=== PATIENT | male | born 1960 | race African-American/Black ===

== ENCOUNTER 2017-07-22 15:05 | Emergency (ER) | payer OTHER ==
--- NOTE | 2017-07-22 15:17 | PDOC ---
Rapid Medical Evaluation Time Seen by Provider: 07/22/17 15:15 Medical Evaluation: Allergies Allergy/AdvReac Type Severity Reaction Status Date / Time No Known Allergies Allergy Verified 07/22/17 15:15 I have performed a brief in-person evaluation of this patient. The patient presents with a chief complaint of: infection to left big toe x 3 days. patient is a diabetic Pertinent physical exam findings: medial border of left big toe is erythematous and slightly edematous. no streaking I have ordered the following: none The patient will proceed to the ED for further evaluation. Discharge Disposition - Diagnosis Toe infection - Referrals - Patient Instructions - Post Discharge Activity
[2017-07-22 15:19] VITALS: BP 124/81; PULSE 92; TEMP 98.5; BMI 46.3
--- NOTE | 2017-07-22 16:21 | PDOC ---
*Physical Exam - Vital Signs Last Vital Signs Temp Pulse Resp BP Pulse Ox 98.5 F 92 H 17 124/81 99 07/22/17 15:16 07/22/17 15:16 07/22/17 15:16 07/22/17 15:16 07/22/17 15:16 - Physical Exam Comments: Of great toe 0 thermic and swollen about the medial nail border with associated tenderness no gross sensorimotor deficits. The great toe is ingrown 07/22/17 16:15 Medical Decision Making - Medical Decision Making A digital block was performed with 1% lidocaine without epinephrine aseptically. This was tolerated well. After this was done appropriate anesthesia was obtained. Aseptically, using blunt forceps the nail was lifted off the medial nail fold medially and cut down to the matrix. The ingrown portion was removed the area was flushed with sterile saline and washed with Betadine and sterile Xeroform dressing was placed. This was tolerated well DSD was placed over this area. Instructions were given to remove the gauze in 48 hours levodopa tear. At that time the patient should have followed up with his upstairs maid. 07/22/17 16:16 *DC/Admit/Observation/Transfer Diagnosis at time of Disposition: Toe infection, Ingrowing nail with infection - Discharge Dispostion Disposition: HOME Condition at time of disposition: Stable Decision to Admit order: No - Referrals - Patient Instructions Printed Discharge Instructions: DI for Ingrown Toenail Additional Instructions: I will see her upstairs maid Dr. Rose in 1-2 days return to the emergency room if symptoms go unresolved or worsen prior to follow up. Take all the antibiotics as prescribed. Take Tylenol for pain. - Post Discharge Activity
== END 2017-07-22 16:26 | disposition home or self-care (01) ==
LOC: JERFT 15:05 → JER 15:05 → JERFT 16:26
PROC: 0HBRXZZ Excision of Toe Nail, External Approach (ICD-10-PCS; principal; 2017-07-22)
PROC: 0HBRXZZ Excision of Toe Nail, External Approach (ICD-10-PCS; 2017-07-22)
DX: L60.0 Ingrowing nail (principal)
CPT/HCPCS: 11750; 99281-25

== ENCOUNTER 2018-04-10 16:59 | Emergency (ER) | payer OTHER ==
[2018-04-10 17:06] VITALS: BP 174/84; PULSE 91; TEMP 98.4; BMI 39.5
--- NOTE | 2018-04-10 18:08 | PDOC ---
History of Present Illness - General Chief Complaint: Rash Stated Complaint: ALLERGY REACTION MEDICATION Time Seen by Provider: 04/10/18 18:02 - History of Present Illness Initial Comments: 04/10/18 18:06 57-year-old male presents for evaluation of penis discoloration 7 days he denies any unprotected sex penile drainage systemic symptoms or discharge Past History - Past Medical History Allergies/Adverse Reactions: Allergies Allergy/AdvReac Type Severity Reaction Status Date / Time No Known Allergies Allergy Verified 04/10/18 17:04 Home Medications: Ambulatory Orders metFORMIN HCL [Glucophage] 500 mg PO BID 01/24/12 Enalapril Maleate 5 mg PO ASDIR 07/22/17 Glipizide [Glucotrol] 5 mg PO ASDIR 07/22/17 COPD: No DVT: No Diabetes: Yes - Immunization History Immunization Up to Date: Yes - Suicide/Smoking/Psychosocial Hx Smoking Status: Yes Smoking History: Unknown if ever smoked Years of Tobacco Use: 15 Have you smoked in the past 12 months: No Number of Cigarettes Smoked Daily: 20 Cigars Per Day: 0 Hx Alcohol Use: No Drug/Substance Use Hx: No Substance Use Type: None Review of Systems - Review of Systems Integumentary: Yes: Change in Color *Physical Exam - Vital Signs Last Vital Signs Temp Pulse Resp BP Pulse Ox 98.4 F 91 H 18 174/84 H 04/10/18 17:04 04/10/18 17:04 04/10/18 17:04 04/10/18 17:04 - Physical Exam Comments: 04/10/18 18:06 External genitalia normal. There is whitening at the dorsal and ventral surface of the penile head and shaft Moderate Sedation - Procedure Monitoring Vital Signs: Procedure Monitoring Vital Signs Temperature 98.4 F 04/10/18 17:04 Pulse Rate 91 H 04/10/18 17:04 Respiratory Rate 18 04/10/18 17:04 Blood Pressure 174/84 H 04/10/18 17:04 O2 Sat by Pulse Oximetry (%) Medical Decision Making - Medical Decision Making 04/10/18 18:07 Vitiligo of the penis *DC/Admit/Observation/Transfer Diagnosis at time of Disposition: Vitiligo - Discharge Dispostion Disposition: HOME Condition at time of disposition: Stable Decision to Admit order: No - Referrals Referrals: Luis Almendarez [Non Staff, Medical] - Reji Jarquin [Non Staff, Medical] - Ernesto Lundberg MD [Non Staff, Medical] - Fabián Thornton MD [Non Staff, Medical] - Kael Barragan MD [Non Staff, Medical] - Amparo Tran MD [Non Staff, Medical] - Paige Dominguez MD [Non Staff, Medical] - Kali Ponce MD [Non Staff, Medical] - Usama Shepherd PA [Non Staff, Medical] - Bobbi Pruett MD [Non Staff, Medical] - Harry Shukla MD [Non Staff, Medical] - Tyrone Ye MD [Non Staff, Medical] - Yemi Murdock [Non Staff, Medical] - Gage Isbell MD [Non Staff, Medical] - - Patient Instructions Printed Discharge Instructions: Vitiligo, DI for Vitiligo Additional Instructions: Return to the emergency room should symptoms worsen or go unresolved. Please follow-up with dermatology in 2-3 days for further evaluation and treatment options. - Post Discharge Activity
== END 2018-04-10 18:09 | disposition home or self-care (01) ==
LOC: JER 16:59 → JERFT 16:59
DX: L80 Vitiligo (principal)
CPT/HCPCS: 99281-25